=== PATIENT | female | born 1965 | race Caucasian/White ===

== ENCOUNTER → 2018-01-15 | Outpatient (CLI) | payer OTHER ==
[~2018-01-15] MED LIST: DILTIAZEM 24HR120 M2 PO
== END ==
LOC: CAT 10:23
DX: Z13.6 Encounter for screening for cardiovascular disorders (principal); E78.00 Pure hypercholesterolemia, unspecified

== ENCOUNTER → 2021-03-29 | Outpatient (CLI) | payer BC, OTHER | LOC: SJCVCIMAG 08:09 | PROVIDERS: ATTEND Internal Medicine Cardiovascular Disease | DX: I47.1 Supraventricular tachycardia (principal) ==